=== PATIENT | male | born 2005 | race Caucasian/White ===

== ENCOUNTER 2025-03-05 15:54 | Emergency (ER) | payer OTHER, SELFPAY ==
[2025-03-05 16:06] VITALS: BP 146/59; PULSE 79; RESP 18; TEMP 36.6; O2SAT 99
--- NOTE | 2025-03-05 16:26 | ED.UPPEXIN ---
HPI - Extremity Injury (Upper) General Chief Complaint: Extremity Injury, Upper Stated Complaint: Shoulder Pain Time Seen by Provider: 03/05/25 16:13 Source: patient and RN notes reviewed Mode of arrival: ambulatory Limitations: no limitations History of Present Illness HPI narrative: 19-year-old male patient presents today complaining of right lateral shoulder pain x1 week, worse after bench pressing 3 days ago. Denies numbness or tingling or hand. Currently rates his pain at rest 2/10, which increases abduction only. No OTC treatment prior to arrival. Related Data Allergies Allergy/AdvReac Type Severity Reaction Status Date / Time No Known Allergies Allergy Verified 03/05/25 16:12 PMFSH Comments At time of signature, I have reviewed and agree with nursing past medical, surgical, social and family history unless otherwise noted. Please see nursing chart for further information. There is no relevant family history pertinent to the presenting complaint Exam Narrative: GENERAL: Well-appearing, well-nourished, and in no acute distress. HEAD: Normocephalic, atraumatic. EYES: EOMI. No redness or drainage. Conjunctivae normal. ENT: Mucous membranes pink and moist. NECK: Normal AROM. CHEST: No respiratory distress. EXTREMITIES: Mild tenderness to the lateral shoulder. No tenderness anteriorly or posteriorly. Pain abduction only. No pain with adduction, flexion, extension, internal or external rotation. Neurovascularly intact. Normal strength. SKIN: Warm, dry, no rash. Capillary refill normal. Normal skin turgor. NEURO: No focal deficits. Alert and oriented x3. Gait steady. PSYCH: Normal affect. No signs of depression or anxiety. Course Course Level of Care: Express Care Visit Vital Signs Vital signs: Vital Signs Temperature 97.8 F 03/05/25 16:06 Pulse Rate 79 03/05/25 16:06 Respiratory Rate 18 03/05/25 16:06 Blood Pressure 146/59 H 03/05/25 16:06 Pulse Oximetry 99 03/05/25 16:06 Temperature 97.8 F 03/05/25 16:06 Pulse Rate 79 03/05/25 16:06 Respiratory Rate 18 03/05/25 16:06 Blood Pressure 146/59 H 03/05/25 16:06 Pulse Oximetry 99 03/05/25 16:06 Reviewed MDM - Extremity Injury (Upper) MDM Narrative Medical decision making narrative: 19-year-old male patient presents today complaining of right lateral shoulder pain x1 week, worse after bench pressing 3 days ago. Denies numbness or tingling or hand. Currently rates his pain at rest 2/10, which increases abduction only. No OTC treatment prior to arrival. Upon exam, Mild tenderness to the lateral shoulder. No tenderness anteriorly or posteriorly. Pain abduction only. No pain with adduction, flexion, extension, internal or external rotation. Neurovascularly intact. Normal strength. Patient declines x-ray. Recommend conservative treatment with PCP or orthopedic follow-up in 7-10 days if symptoms persist. Prescription for diclofenac sent to pharmacy for pain and inflammation. Patient agrees with plan. Vital signs stable. Anticipatory guidance given. Differential Diagnosis Differential diagnosis: Likely other (Shoulder strain,rotator cuff tear, tendinitis, AC separation) Critical Care Time Critical Care Time Critical Care Time: No Discharge Plan Discharge Clinical Impression: Acute pain of right shoulder Patient Disposition: Home Condition: Stable Instructions: P.R.I.C.E. Treatment (ED) Additional Instructions: Ice and rest your shoulder. Take the diclofenac if needed for pain and inflammation. Follow-up with either your PCP or orthopedics in 1 week if symptoms are not improving. Patient Language: [place] Prescriptions: New diclofenac sodium 50 mg tablet,delayed release (DR/EC) 50 mg PO TID PRN (Reason: pain) Qty: 20 0RF Follow-up/Referrals: PHYSICIAN,[employer] [Primary Care Provider, Internal Medicine] Time of Disposition: 16:31
== END 2025-03-05 16:35 | disposition home or self-care (01) ==
PROVIDERS: Emergency Provider Nurse Practitioner
DX: M25.511 Pain in right shoulder (principal)
CPT/HCPCS: 99203; G0463